=== PATIENT | female | born 1980 | race Caucasian/White ===

== ENCOUNTER 2016-11-10 12:49 | Emergency (ER) | payer SELFPAY ==
[2016-11-10 13:04] VITALS: BP 102/55
--- NOTE | 2016-11-10 13:38 | ER Document Report ---
HPI - HPI Patient complains to provider of: right foot pain Pain Level: 5 Context: patient is a 36 year old female p/w right foot pain that has been on/off for about one year. she states last spring she was treated for celullitis of her foot and since then jhas had intermittent pain on the bottom of her foot described as aching. this pain is illicited by flip flops. she states that when she wears flip flops the bottom of her foot can hurt as a 5/5. it improves with rest, elevation, ice, massage and motrin. she denies any injury, previous surgery no PCP on methadone - REPRODUCTIVE Reproductive: DENIES: : - DERM Skin Color: Normal Past Medical History - Social History Smoking Status: Current Every Day Smoker Family History: CAD, CVA, DM, Hyperlipidemia, Hypertension, Malignancy Patient has suicidal ideation: No Patient has homicidal ideation: No Neurological Medical History: Denies: Hx Seizures Renal/ Medical History: Denies: Hx Peritoneal Dialysis Psychiatric Medical History: Reports: Hx Depression Past Surgical History: Reports: Hx Appendectomy - age 6, Hx Tubal Ligation. Denies: Hx Hysterectomy, Hx Pacemaker - Immunizations Hx Diphtheria, Pertussis, Tetanus Vaccination: Yes Vertical Provider Document - CONSTITUTIONAL Agree With Documented VS: Yes Exam Limitations: No Limitations General Appearance: WD/WN, No Apparent Distress - INFECTION CONTROL TRAVEL OUTSIDE OF THE [place] IN LAST 30 DAYS: No - RESPIRATORY O2 Sat by Pulse Oximetry: 98 - CARDIOVASCULAR Pulses: Normal: Dorsalis pedis Notes: cap refill < 2 seconds in all LE digits - MUSCULOSKELETAL/EXTREMETIES Musculoskeletal/Extremeties: MAEW, FROM, Tender - insertion of the proneal tendon, No Edema Notes: 1st MTP joint without erythema, tenderness. - NEURO Level of Consciousness: Awake, Alert, Appropriate Motor/Sensory: No Motor Deficit, No Sensory Deficit - DERM Integumentary: Warm, Dry, No Rash - no erythema Course - Re-evaluation Re-evalutation: 11/10/16 13:43 Patients H&P consistent with peroneal tendonitis. d/w her to wear supportive shoes, cont RICE. f/u with [facility] - Vital Signs Vital signs: Temp Pulse Resp BP Pulse Ox 98.4 F 69 18 102/55 L 98 11/10/16 13:01 11/10/16 13:01 11/10/16 13:01 11/10/16 13:01 11/10/16 13:01 Discharge - Discharge Clinical Impression: Tendonitis Condition: Good Disposition: HOME, SELF-CARE Instructions: Tendonitis ([facility]), Ice Massage ([facility]), Use of Lhsa-Qkf-Tejyzbi Ibuprofen ([facility]) Additional Instructions: Freeze a water bottle and roll your foot over it 2-6 times a day Referrals: [facility] [NO [facility]AL MD] - Follow up as needed (to establish as a new patient)
== END 2016-11-10 14:00 | disposition home or self-care (01) ==
LOC: ER 12:49
DX: M76.71 Peroneal tendinitis, right leg (principal); M79.671 Pain in right foot; F17.200 Nicotine dependence, unspecified, uncomplicated; Z98.51 Tubal ligation status; Z79.891 Long term (current) use of opiate analgesic
CPT/HCPCS: 99283

== ENCOUNTER 2018-03-22 07:01 | Inpatient (IN) | payer SELFPAY ==
--- NOTE | 2018-03-22 07:41 | ER Document Report ---
ED General - General Mode of Arrival: Ambulatory Information source: Patient TRAVEL OUTSIDE OF THE [place] IN LAST 30 DAYS: No <LETTY PARSON - Last Filed: 03/22/18 09:25> <WILLEM MORALES - Last Filed: 03/22/18 10:17> - General Chief Complaint: Fever Stated Complaint: FEVER Time Seen by Provider: 03/22/18 07:22 Notes: Patient is a 37 year old female with depression, restless leg syndrome, and opiate dependence presents to the emergency department complaining of a fever and shortness of breath onset 3 days ago, nausea, vomiting and diaphoresis onset this morning, and diarrhea onset 1 week ago. Patient states she has been feeling unwell for the last 3 days stating she has had a fever and been having difficulty breathing. She states this morning she woke up extremely diaphoretic and vomited 1x. She states she has had diarrhea for the last week but states having intermittent diarrhea is not new for her. Patient denies cough, abdominal pain or pain with breathing. Upon arrival to the emergency department, patient's pulse ox was 89% on room air. Patient is currently taking Gabapentin, Prozac, Methadone (being seen at a methadone clinic) and follows up at [facility]. (LETTY PARSON) - Related Data Allergies/Adverse Reactions: cefazolin sodium [From Anc] Allergy (Verified 12/13/15 22:37) Hives clindamycin Allergy (Verified 12/13/15 22:37) Past Medical History - General Information source: Patient - Social History Smoking Status: Current Every Day Smoker Cigarette use (# per day): Yes - .5 PPD Chew tobacco use (# tins/day): No Frequency of alcohol use: None Family History: CAD, CVA, DM, Hyperlipidemia, Hypertension, Malignancy Psychiatric Medical History: Reports: Hx Depression Past Surgical History: Reports: Hx Appendectomy - age 6, Hx Tubal Ligation - Immunizations Hx Diphtheria, Pertussis, Tetanus Vaccination: Yes <LETTY PARSON - Last Filed: 03/22/18 09:25> Review of Systems - Review of Systems Constitutional: See HPI, Diaphoresis, Fever EENT: No symptoms reported Cardiovascular: No symptoms reported Respiratory: See HPI, Short of breath Gastrointestinal: See HPI, Diarrhea, Nausea, Vomiting Genitourinary: No symptoms reported Female Genitourinary: No symptoms reported Musculoskeletal: No symptoms reported Skin: No symptoms reported Hematologic/Lymphatic: No symptoms reported Neurological/Psychological: No symptoms reported -: Yes All other systems reviewed and negative <LETTY PARSON - Last Filed: 03/22/18 09:25> Physical Exam <LETTY PARSON - Last Filed: 03/22/18 09:25> <WILLEM MORALES - Last Filed: 03/22/18 10:17> - Vital signs Vitals: Temp Pulse Resp BP Pulse Ox 99.2 F 114 H 22 H 131/85 H 89 L 03/22/18 07:02 03/22/18 07:02 03/22/18 07:02 03/22/18 07:02 03/22/18 07:02 - Notes Notes: GENERAL: Alert, interacts well. No acute distress. HEAD: Normocephalic, atraumatic. EYES: Pupils equal, round, and reactive to light. Extraocular movements intact. ENT: Oral mucosa moist, tongue midline. NECK: Full range of motion. Supple. Trachea midline. LUNGS: Tachypneic, shallow rapid breathing, no pain with breathing, 94% on 2L of oxygen. Clear to auscultation bilaterally, no wheezes, rales, or rhonchi. No respiratory distress. HEART: Tachycardic. 1/6 systolic murmur. No gallops or rubs. ABDOMEN: Soft, non-tender. Non-distended. Bowel sounds present in all 4 quadrants. EXTREMITIES: Moves all 4 extremities spontaneously. NEUROLOGICAL: Alert and oriented x3. Normal speech. PSYCH: Normal affect, normal mood. SKIN: Warm, dry, normal turgor. No rashes or lesions noted. (LETTY PARSON) Course - Laboratory Result Diagrams: 03/22/18 07:20 03/22/18 07:20 <LETTY PARSON - Last Filed: 03/22/18 09:25> - Laboratory Result Diagrams: 03/22/18 07:20 03/22/18 07:20 - Diagnostic Test Radiology reviewed: Reports reviewed - CT scan of the chest shows diffuse airways disease with air bronchograms. Radiologist feels this is most consistent with viral or atypical pneumonia. - EKG Interpretation by Pr EKG shows normal: Sinus rhythm, [place], Intervals, QRS Complexes, ST-T Waves Rate: Normal - 88 Rhythm: NSR <WILLEM MORALES - Last Filed: 03/22/18 10:17> - Vital Signs Vital signs: Temp Pulse Resp BP Pulse Ox 99.2 F 114 H 22 H 131/85 H 89 L 03/22/18 07:02 03/22/18 07:02 03/22/18 07:02 03/22/18 07:02 03/22/18 07:02 - Laboratory Laboratory results interpreted by me: 03/22/18 03/22/18 03/22/18 07:20 07:20 07:20 WBC 10.7 H Hgb 11.5 L Hct 32.9 L RDW 15.5 H Seg Neutrophils % 86.3 H Lymphocytes % 8.6 L Absolute Neutrophils 9.2 H D-Dimer 1.07 H Potassium 3.5 L Chloride 108 H Carbon Dioxide 19 L Glucose 115 H AST 38 H Urine Protein Urine Ketones Urine Blood Urine Urobilinogen 03/22/18 08:59 WBC Hgb Hct RDW Seg Neutrophils % Lymphocytes % Absolute Neutrophils D-Dimer Potassium Chloride Carbon Dioxide Glucose AST Urine Protein 30 H Urine Ketones 20 H Urine Blood SMALL H Urine Urobilinogen 4.0 H Critical Care Note - Critical Care Note Total time excluding time spent on procedures (mins): 40 <WILLEM MORALES - Last Filed: 03/22/18 10:17> Discharge <LETTY PARSON - Last Filed: 03/22/18 09:25> - Discharge Admitting Provider: Hospitalist Unit Admitted: [facility] <WILLEM MORALES - Last Filed: 03/22/18 10:17> - Discharge Clinical Impression: Hypoxemia, Immunosuppressed status Pneumonia Qualifiers: Pneumonia type: due to unspecified organism Laterality: bilateral Lung location : lower lobe of lung Qualified Code(s): J18.1 - Lobar pneumonia, unspecified organism Fever Qualifiers: Fever type: unspecified Qualified Code(s): R50.9 - Fever, unspecified Condition: Fair Disposition: ADMITTED INPATIENT Scribe Attestation: 03/22/18 08:33 I personally performed the services described in the documentation, reviewed and edited the documentation which was dictated to the scribe in my presence, and it accurately records my words and actions. (ANDREW,WILLEM) Scribe Documentation - Scribe Written by Davian:: Davian Bhandari, 03/22/2018 07:44 acting as scribe for :: Andrew <LETTY PARSON - Last Filed: 03/22/18 09:25>
[2018-03-22 08:19] LABS: ALANINE AMINOTRANSFERASE 22 U/L (9-52); ALBUMIN 3.7 g/dL (3.5-5.0); ALKALINE PHOSPHATASE 95 U/L (38-126); ANION GAP 15 (5-19); ASPARTATE AMINO TRANSFERASE 38 U/L (14-36); BILIRUBIN,DIRECT 0.4 mg/dL (0.0-0.4); BILIRUBIN,TOTAL 0.6 mg/dL (0.2-1.3); BLOOD UREA NITROGEN 12 mg/dL (7-20); CALCIUM 9.5 mg/dL (8.4-10.2); CARBON DIOXIDE 19 mmol/L (22-30); CHLORIDE 108 mmol/L (98-107); CREATINE KINASE 68 U/L (30-135); GLUCOSE 115 mg/dL (75-110); POTASSIUM 3.5 mmol/L (3.6-5.0); SODIUM 141.7 mmol/L (137-145); TOTAL PROTEIN 7.1 g/dL (6.3-8.2)
[2018-03-22 08:22] LABS: ABSOLUTE EOSINOPHILS # (AUTO) 0.1 10^3/uL (0.0-0.6); ABSOLUTE LYMPHOCYTES (AUTO) 0.9 10^3/uL (0.5-4.7); ABSOLUTE MONOCYTES (AUTO) 0.4 10^3/uL (0.1-1.4); ABSOLUTE NEUT (AUTO) 9.2 10^3/uL (1.7-8.2); BASOPHILS % (AUTO) 0.4 % (0-2); EOSINOPHILS % (AUTO) 0.9 % (0-6); HEMATOCRIT 32.9 % (36.0-47.0); HEMOGLOBIN 11.5 g/dL (12.0-15.5); LYMPHOCYTES % (AUTO) 8.6 % (13-45); MEAN CORPUSCULAR HEMOGLOBIN 29.2 pg (27.0-33.4); MEAN CORPUSCULAR VOLUME 84 fl (80-97); MONOCYTES % (AUTO) 3.8 % (3-13); PLATELET COUNT 400 10^3/uL (150-450); RED BLOOD COUNT 3.94 10^6/uL (3.72-5.28); RED CELL DISTRIBUTION WIDTH 15.5 % (11.5-14.0); SEGMENTED NEUTROPHILS % (AUTO) 86.3 % (42-78); TOTAL CELLS COUNTED % (AUTO) 100 %; WHITE BLOOD COUNT 10.7 10^3/uL (4.0-10.5)
--- NOTE | 2018-03-22 08:31 | RADIOLOGY REPORT (SQ) ---
EXAM DESCRIPTION: CHEST SINGLE VIEW COMPLETED DATE/TIME: 03/22/2018 7:56 am REASON FOR STUDY: SOB, fever COMPARISON: None. EXAM PARAMETERS: NUMBER OF VIEWS: One view. TECHNIQUE: Single frontal radiographic view of the chest acquired. RADIATION DOSE: NA LIMITATIONS: None. FINDINGS: LUNGS AND PLEURA: Bilateral airspace disease with relative sparing of the apices. Associa fatuma air bronchograms. No large effusions. MEDIASTINUM AND HILAR STRUCTURES: No masses. Contour normal. HEART AND VASCULAR STRUCTURES: Heart normal in size. Normal vasculature. BONES: No acute findings. HARDWARE: None in the chest. OTHER: No other significant finding. IMPRESSION: Bilateral pneumonia. TECHNICAL DOCUMENTATION: JOB ID: [id number] [employer]- All Rights Reserved Reading location - IP/workstation name: [email or web address]
[2018-03-22 08:37] LABS: CREATINE KINASE MB 0.52 ng/mL (<4.55); TROPONIN I < 0.012 ng/mL
--- NOTE | 2018-03-22 09:00 | EKG REPORT ---
SEVERITY:- NORMAL ECG - SINUS RHYTHM NONSPECIFIC ST-T CHANGES : Confirmed by: Juan Epps 22-Mar-2018 08:59:08
[2018-03-22 09:13] LABS: APPEARANCE,URINE CLEAR; BILIRUBIN,URINE NEGATIVE (NEGATIVE); COLOR,URINE YELLOW; GLUCOSE, URINE NEGATIVE (NEGATIVE); KETONES,URINE 20 mg/dL (NEGATIVE); LEUKOCYTE ESTERASE,URINE NEGATIVE (NEGATIVE); NITRITE,URINE NEGATIVE (NEGATIVE); PROTEIN,URINE 30 mg/dL (NEGATIVE)
[2018-03-22] MEDS ORDERED: ONDANSETRON HCL INJ/PF 4 MG/2 ML SDV IV ONE (09:51)
--- NOTE | 2018-03-22 09:56 | RADIOLOGY REPORT (SQ) ---
EXAM DESCRIPTION: CTA CHEST COMPLETED DATE/TIME: 03/22/2018 9:38 am REASON FOR STUDY: Dyspnea, hypoxemia, elevated d-dimer COMPARISON: None. TECHNIQUE: CT scan of the chest performed using helical scanning technique with dynamic intravenous contrast injection. Images reviewed with lung, soft tissue and bone windows. Reconstructed coronal and sagittal MPR images reviewed. Additional 3 dimensional post-processing performed to develop Maximal Intensity Projection images (WI P). All images stored on PACS. All CT scanners at this facility use dose modulation, iterative reconstruction, and/or weight based d osing when appropriate to reduce radiation dose to as low as reasonably achievable (ALARA). [facility]: Dose Right [facility]: CareDose [facility]: Dose Right [facility]: Teradose 4D [facility]: Compliance Science CONTRAST TYPE AND DOSE: contrast/concentration: Isovue 350.00 mg/ml; Total Contrast Delivered: 73.0 ml; Total Saline Delivered: 80.1 ml Contrast bolus adequate for pulmonary arteries and aorta. RENAL FUNCTION: GFR > 60. RADIATION DOSE: CT Rad equipment meets quality standard of care and radiation dose reduction techniq ues were employed. CTDIvol: 14.3 - 16.5 mGy. DLP: 469 mGy-cm. . LIMITATIONS: None. FINDINGS: LUNGS AND PLEURA: Diffuse airspace disease with air bronchograms in both lungs. No eviden ce of cavitation. No Bonifacio B-lines. No effusions. Central airways are patent. AORTA AND GREAT VESSELS: No aneurysm. No dissection. HEART: No pericardial effusion. No significant coronary artery calcifications. PULMONARY ARTERIES: No emboli visualized in the main pulmonary arteries or the segmental branches. HILAR AND MEDIASTINAL STRUCTURES: No identified masses or abnormal nodes. HARDWARE: None in the chest. UPPER ABDOMEN: No significant findings. Limited exam. THYROID AND OTHER SOFT TISSUES: No masses. No adenopathy. BONES: No acute or significant finding. 3D MIPS: Confirm above findings. OTHER: No other significant finding. IMPRESSION: 1. No PE. 2. Diffuse airspace disease most consistent with viral or atypical pneumonia. Sarcoid and hypersensi tivity could also have this appearance. COMMENT: Quality ID # [id number]: Final reports with documentation of one or more dose reduction techniques (e.g., Automated exposure control, adjustment of the mA and/or kV according to patient size, use of iterative reconstruction technique) TECHNICAL DOCUMENTATION: JOB ID: [id number] [employer]- All Rights Reserved Reading location - IP/workstation name: [email or web address]
[2018-03-22] MEDS ORDERED: LEVOFLOXACIN 750 MG/D5W RTU 750 MG/150 ML RTUPB IV ONE (09:58)
[2018-03-22] MEDS ORDERED: DEXTROSE 5%-LACTATED RINGERS 1,000 ML IV ONE (10:03)
[2018-03-22] MEDS ORDERED: TEMAZEPAM 7.5 MG CAPSULE PO PRN (11:25)
[2018-03-22] MEDS ORDERED: ONDANSETRON HCL INJ/PF 4 MG/2 ML SDV IV PRN (11:25)
[2018-03-22] MEDS ORDERED: OXYCODONE-ACETAMINOPHEN 5-325 MG TABLET PO PRN (11:25)
[2018-03-22] MEDS ORDERED: MAGNESIUM HYDROXIDE SUSP 30 ML UDCUP PO PRN (11:25)
[2018-03-22] MEDS ORDERED: IPRATROPIUM/ALBUTEROL 0.5-2.5 MG/3 ML AMPUL NEB PRN (11:25)
[2018-03-22] MEDS ORDERED: MAG HYDROX/AL HYDROX/SIMETH SUSP 30 ML UDCUP PO PRN (11:25)
[2018-03-22] MEDS ORDERED: ENOXAPARIN SODIUM INJ 40 MG/0.4 ML DISP.SYRIN SUBCUT ONE (13:00)
--- NOTE | 2018-03-22 19:04 | PDOC H&P ---
History of Present Illness Admission Date/PCP: 03/22/18 10:29 Patient complains of: Patient admitted with difficulty breathing and shortness of breath fever been ongoing for a few days. History of Present Illness: GÉNESIS DUMONT is a 37 year old female She woke up this morning with diaphoresis as well as vomiting. She also complained of intermittent diarrhea but denies abdominal pain nausea and vomiting. She was found to be in acute respiratory distress. CT scan revealed diffuse airspace disease consistent with viral or atypical pneumonitis. Sarcoid and hypersensitivity reactions could also have this appearance. Patient has a history of depression, restless leg syndrome as well as opiate dependency. Patient is currently on methadone as well as Prozac and gabapentin Past Medical History Neurological Medical History: Denies: Seizures Psychiatric Medical History: Reports: Depression Past Surgical History Past Surgical History: Reports: Appendectomy - age 6, Tubal Ligation Denies: Hysterectomy, Pacemaker Social History Information Source: Patient Smoking Status: Current Every Day Smoker Cigarettes Packs Per Day: 0.5 Number of Years Smokin Frequency of Alcohol Use: None Hx Recreational Drug Use: Yes Drugs: None Hx Prescription Drug Abuse: No - Advance Directive Resuscitation Status: Full Code Family History Family History: CAD, CVA, DM, Hyperlipidemia, Hypertension, Malignancy Parental Family History Reviewed: Yes Children Family History Reviewed: No Sibling(s) Family History Reviewed.: No Medication/Allergy Home Medications: Fluoxetine HCl [Prozac 20 mg Capsule] 60 mg PO DAILY 03/22/18 Gabapentin [Neurontin] 800 mg PO Q6 03/22/18 Methadone HCl [Dolophine 10 Mg Tablet] 120 mg PO DAILY 03/22/18 Allergies/Adverse Reactions: cefazolin sodium [From Ancef] Allergy (Verified 12/13/15 22:37) Hives clindamycin Allergy (Verified 12/13/15 22:37) Review of Systems All systems: reviewed and no additional remarkable complaints except as stated Physical Exam Vital Signs: Temp Pulse Resp BP Pulse Ox 97.7 F 72 20 100/55 L 91 L 03/22/18 13:36 03/22/18 13:32 03/22/18 13:36 03/22/18 13:36 03/22/18 13:36 Intake & Output 03/21/18 03/22/18 03/23/18 06:59 06:59 06:59 Intake Total 1270 Output Total 0 Balance 1270 General appearance: PRESENT: no acute distress, well-developed, well-nourished Head exam: PRESENT: atraumatic, normocephalic Eye exam: PRESENT: conjunctiva pink, EOMI, PERRLA. ABSENT: scleral icterus Ear exam: PRESENT: normal external ear exam Mouth exam: PRESENT: moist, tongue midline Neck exam: ABSENT: carotid bruit, JVD, lymphadenopathy, thyromegaly Respiratory exam: PRESENT: decreased breath sounds, rhonchi, unlabored. ABSENT : rales, wheezes Cardiovascular exam: PRESENT: RRR. ABSENT: diastolic murmur, rubs, systolic murmur Pulses: PRESENT: normal dorsalis pedis pul Vascular exam: PRESENT: normal capillary refill GI/Abdominal exam: PRESENT: normal bowel sounds, soft. ABSENT: distended, guarding, mass, organolmegaly, rebound, tenderness Rectal exam: PRESENT: deferred Extremities exam: PRESENT: full ROM. ABSENT: calf tenderness, clubbing, pedal edema Neurological exam: PRESENT: alert, awake, oriented to person, oriented to place , oriented to time, oriented to situation, CN II-XII grossly intact. ABSENT: motor sensory deficit Psychiatric exam: PRESENT: appropriate affect, normal mood. ABSENT: homicidal ideation, suicidal ideation Skin exam: PRESENT: dry, intact, warm. ABSENT: cyanosis, rash Results Laboratory Results: 03/22/18 07:20 03/22/18 07:20 MCV 84 fl (80-97) 03/22/18 07:20 MCH 29.2 pg (27.0-33.4) 03/22/18 07:20 MCHC 35.0 g/dL (32.0-36.0) 03/22/18 07:20 RDW 15.5 % (11.5-14.0) H 03/22/18 07:20 Seg Neutrophils % 86.3 % (42-78) H 03/22/18 07:20 Lymphocytes % 8.6 % (13-45) L 03/22/18 07:20 Monocytes % 3.8 % (3-13) 03/22/18 07:20 Eosinophils % 0.9 % (0-6) 03/22/18 07:20 Basophils % 0.4 % (0-2) 03/22/18 07:20 Absolute Neutrophils 9.2 10^3/uL (1.7-8.2) H 03/22/18 07:20 Absolute Lymphocytes 0.9 10^3/uL (0.5-4.7) 03/22/18 07:20 Absolute Monocytes 0.4 10^3/uL (0.1-1.4) 03/22/18 07:20 Absolute Eosinophils 0.1 10^3/uL (0.0-0.6) 03/22/18 07:20 Absolute Basophils 0.0 10^3/uL (0.0-0.2) 03/22/18 07:20 Chloride 108 mmol/L (98-107) H 03/22/18 07:20 Carbon Dioxide 19 mmol/L (22-30) L 03/22/18 07:20 Anion Gap 15 (5-19) 03/22/18 07:20 Est GFR ( Amer) > 60 (>60) 03/22/18 07:20 Est GFR (Non-Af Amer) > 60 (>60) 03/22/18 07:20 Glucose 115 mg/dL (75-110) H 03/22/18 07:20 Lactic Acid 1.1 mmol/L (0.7-2.1) 03/22/18 10:03 Calcium 9.5 mg/dL (8.4-10.2) 03/22/18 07:20 Total Bilirubin 0.6 mg/dL (0.2-1.3) 03/22/18 07:20 AST 38 U/L (14-36) H 03/22/18 07:20 ALT 22 U/L (9-52) 03/22/18 07:20 Alkaline Phosphatase 95 U/L (38-126) 03/22/18 07:20 Total Protein 7.1 g/dL (6.3-8.2) 03/22/18 07:20 Albumin 3.7 g/dL (3.5-5.0) 03/22/18 07:20 Serum HCG, Qual NEGATIVE (NEGATIVE) 03/22/18 07:20 Urine Color YELLOW 03/22/18 08:59 Urine Appearance CLEAR 03/22/18 08:59 Urine pH 6.0 (5.0-9.0) 03/22/18 08:59 Ur Specific [place] 1.010 03/22/18 08:59 Urine Protein 30 mg/dL (NEGATIVE) H 03/22/18 08:59 Urine Glucose (UA) NEGATIVE mg/dL (NEGATIVE) 03/22/18 08:59 Urine Ketones 20 mg/dL (NEGATIVE) H 03/22/18 08:59 Urine Blood SMALL (NEGATIVE) H 03/22/18 08:59 Urine Nitrite NEGATIVE (NEGATIVE) 03/22/18 08:59 Ur Leukocyte Esterase NEGATIVE (NEGATIVE) 03/22/18 08:59 Urine WBC (Auto) 0 /HPF 03/22/18 08:59 Urine RBC (Auto) 1 /HPF 03/22/18 08:59 03/22/18 03/22/18 03/22/18 07:20 07:20 07:20 Creatine Kinase 68 CK-MB (CK-2) 0.52 Troponin I < 0.012 NT-Pro-B Natriuret Pep 816 H Impressions: Chest X-Ray 03/22/18 07:35 IMPRESSION: Bilateral pneumonia. Chest/Abdomen CTA 03/22/18 08:32 IMPRESSION: 1. No PE. 2. Diffuse airspace disease most consistent with viral or atypical pneumonia. Sarcoid and hypersensitivity could also have this appearance. Assessment & Plan - Diagnosis (1) Pneumonia Qualifiers: Pneumonia type: due to unspecified organism Laterality: bilateral Lung location: lower lobe of lung Qualified Code(s): J18.1 - Lobar pneumonia, unspecified organism Is this a current diagnosis for this admission?: Yes Plan: Likely atypical as per radiology readings. Will obtain Legionella and mycoplasma titers. HIV test will also be obtained. Will place patient on Levaquin in the interim. It is quite possible that this is a viral pneumonia. Further consultation with infectious disease will be obtained if needed (2) Acute respiratory failure with hypoxemia Is this a current diagnosis for this admission?: Yes Plan: We will continue oxygen support. At this time I see no indication for steroids and so will defer for now (3) Chronic pain syndrome Is this a current diagnosis for this admission?: Yes Plan: Continuous opioid use. She is on methadone as outpatient. Will restart her on her home meds with the adjustments as needed - Time Time Spent: 50 to 70 Minutes Medications reviewed and adjusted accordingly: Yes Anticipated discharge: Home Within: within 72 hours - Inpatient Certification Based on my medical assessment, after consideration of the patient's comorbidities, presenting symptoms, or acuity I expect that the services needed warrant INPATIENT care.: Yes Medical Necessity: Need For IV Fluids, Need for Nebulizer Therapy and Monitoring of Response, Need for IV Antibiotics
[2018-03-22] MEDS: ACETAMINOPHEN 325 MG TABLET PO PRN (22:53)
[2018-03-22] MEDS: GUAIFENESIN 600 MG TABLET.SA PO SCH (22:53)
[2018-03-22] MEDS: GABAPENTIN 400 MG CAPSULE PO SCH (23:00)
[2018-03-23] MEDS: GABAPENTIN 400 MG CAPSULE PO SCH ×4 (05:42→23:27)
[2018-03-23] MEDS: ACETAMINOPHEN 325 MG TABLET PO PRN (06:59)
[2018-03-23 07:32] LABS: ABSOLUTE EOSINOPHILS # (AUTO) 0.4 10^3/uL (0.0-0.6); ABSOLUTE LYMPHOCYTES (AUTO) 1.3 10^3/uL (0.5-4.7); ABSOLUTE MONOCYTES (AUTO) 0.6 10^3/uL (0.1-1.4); ABSOLUTE NEUT (AUTO) 5.9 10^3/uL (1.7-8.2); BASOPHILS % (AUTO) 0.5 % (0-2); EOSINOPHILS % (AUTO) 4.6 % (0-6); HEMATOCRIT 28.1 % (36.0-47.0); HEMOGLOBIN 9.8 g/dL (12.0-15.5); LYMPHOCYTES % (AUTO) 16.1 % (13-45); MEAN CORPUSCULAR HEMOGLOBIN 28.8 pg (27.0-33.4); MEAN CORPUSCULAR HGB CONC 34.9 g/dL (32.0-36.0); MEAN CORPUSCULAR VOLUME 83 fl (80-97); MONOCYTES % (AUTO) 6.9 % (3-13); PLATELET COUNT 328 10^3/uL (150-450); RED CELL DISTRIBUTION WIDTH 15.3 % (11.5-14.0); SEGMENTED NEUTROPHILS % (AUTO) 71.9 % (42-78); TOTAL CELLS COUNTED % (AUTO) 100 %; WHITE BLOOD COUNT 8.2 10^3/uL (4.0-10.5)
[2018-03-23 07:52] LABS: ANION GAP 12 (5-19); BLOOD UREA NITROGEN 11 mg/dL (7-20); CALCIUM 8.8 mg/dL (8.4-10.2); CARBON DIOXIDE 22 mmol/L (22-30); CHLORIDE 109 mmol/L (98-107); GLUCOSE 99 mg/dL (75-110); POTASSIUM 3.2 mmol/L (3.6-5.0); SODIUM 142.7 mmol/L (137-145)
[2018-03-23] MEDS: GUAIFENESIN 600 MG TABLET.SA PO SCH ×2 (09:08→21:52)
[2018-03-23] MEDS: METHADONE HCL 10 MG TABLET PO SCH (09:09)
[2018-03-23] MEDS: FLUOXETINE HCL 20 MG CAPSULE PO SCH (09:09)
[2018-03-23] MEDS: ENOXAPARIN SODIUM INJ 40 MG/0.4 ML DISP.SYRIN SUBCUT SCH (09:10)
[2018-03-23] MEDS: LEVOFLOXACIN 750 MG/D5W RTU 750 MG/150 ML RTUPB IV SCH (09:11)
[2018-03-23] MEDS: DOCUSATE SODIUM 100 MG CAPSULE PO SCH (09:12)
[2018-03-23] MEDS ORDERED: POTASSIUM CHLORIDE 10 MEQ CAPSULE.ER PO ONE (12:30)
[2018-03-23] MEDS: KETOROLAC TROMETHAMINE INJ/PF 30 MG/1 ML SDV IV SCH ×3 (12:47→23:27)
--- NOTE | 2018-03-23 15:11 | PROGRESS NOTE E ---
Progress Note NAME: GÉNESIS DUMONT : 1980 AGE: 37Y DATE: 03/23/2018 ROOM: 333 SUBJECTIVE: The patient is currently sitting up in bed. She states she feels much better today in comparison to yesterday when she came in. The patient denies any nausea, vomiting, diarrhea. No dizziness or chest pain. The patient does admit to some shortness of breath with activity and pleuritic style discomfort. However, the patient does not have any conversational dyspnea and does not appear to be in any acute distress. REVIEW OF SYSTEMS: The rest of the review of systems is negative. MEDICATIONS: Reviewed. OBJECTIVE: GENERAL: The patient is a 37-year-old female who is awake, alert, and oriented to person, place, time, and situation. She is verbal and conversational. Does not appear to be in any acute distress. VITAL SIGNS: Temperature 98.2, pulse 73, respirations 18, blood pressure 100/47, oxygen saturation is 98% on 2 liters nasal cannula. SKIN: Warm and dry. No rash, not diaphoretic. HEENT: Pupils equal, round, and reactive to light and accommodation. Oral mucosa pink. CVS: Heart is regular. No rub. CHEST: Diminished, symmetrical, unlabored. ABDOMEN: Soft, nontender, nondistended. BACK: No CVA tenderness. EXTREMITIES: No clubbing, cyanosis, or edema. PSYCHIATRIC: Appropriate affect, positive mood. DIAGNOSTICS: Lab values are as follows. Hematology obtained on 03/23/2018 demonstrates white count 8, hematocrit 28.1, platelet count 328,000. Chemistry obtained on 03/23/2018: Sodium 142, potassium 3.2, chloride 109, carbon dioxide 22, BUN 11, creatinine 0.55, glucose 99, calcium 8.8. ASSESSMENT AND PLAN: 1. ATYPICAL PNEUMONIA. Will continue current antibiotic coverage. The patient still has pending mycoplasma as well as Legionella. HIV was unremarkable. I will continue current coverage, as the patient overall feels much improved. Of course, there may be underlying bowel process. Will continue to monitor the patient. Clinically appears improved. 2. ACUTE HYPOXEMIC RESPIRATORY FAILURE. Will continue to supplement O2. The patient is not wheezing. Steroids have been deferred at this time. She has made improvement. Will follow. 3. Opiate dependency. Continuous. Will continue the patient's home medications. She does take methadone on an outpatient basis. I have started her home medications and adjustments have been made accordingly. 4. TOBACCO DEPENDENCY. Spent 3 minutes discussing smoking cessation education. The patient declines any pharmacological intervention at this time. Will add as needed nicotine patch. DISPOSITION: The patient is a full code. Pending the patient's symptomatology and diagnostic findings, will reevaluate in the a.m. for discharge. Will downgrade the patient to a medical bed. Time spent on this followup including assessment, plan, physical examination, patient education, review of records, and family meeting 20 minutes. DICTATING PHYSICIAN: VARSHA CONTRERSA NP [id number] PHY#: [id number] ID: [id number] JOB#: [id number] ACCT: [id number] cc: > MTDD
[2018-03-24] MEDS: GABAPENTIN 400 MG CAPSULE PO SCH (05:22)
[2018-03-24] MEDS: KETOROLAC TROMETHAMINE INJ/PF 30 MG/1 ML SDV IV SCH (05:23)
[2018-03-24 07:52] LABS: ANION GAP 12 (5-19); BLOOD UREA NITROGEN 16 mg/dL (7-20); CALCIUM 8.9 mg/dL (8.4-10.2); CARBON DIOXIDE 23 mmol/L (22-30); CHLORIDE 108 mmol/L (98-107); GLUCOSE 90 mg/dL (75-110); POTASSIUM 3.5 mmol/L (3.6-5.0); SODIUM 143.3 mmol/L (137-145)
[2018-03-24] MEDS: METHADONE HCL 10 MG TABLET PO SCH (09:11)
[2018-03-24] MEDS: FLUOXETINE HCL 20 MG CAPSULE PO SCH (09:12)
[2018-03-24] MEDS: GUAIFENESIN 600 MG TABLET.SA PO SCH (09:12)
[2018-03-24] MEDS: ENOXAPARIN SODIUM INJ 40 MG/0.4 ML DISP.SYRIN SUBCUT SCH (09:13)
[2018-03-24] MEDS: LEVOFLOXACIN 750 MG/D5W RTU 750 MG/150 ML RTUPB IV SCH (09:13)
[2018-03-24] MEDS: DOCUSATE SODIUM 100 MG CAPSULE PO SCH (09:13)
[2018-03-24 11:35] VITALS: BP 115/62
--- NOTE | 2018-03-24 16:20 | PDOC DISCHARGE SUMMARY ---
General - Admit/Disc Date/PCP Admission Date/Primary Care Provider: 03/22/18 10:29 [facility] Discharge Date: 03/24/18 - Discharge Diagnosis (1) Multifocal pneumonia Is this a current diagnosis for this admission?: Yes Summary: review CTA findings. (2) Acute respiratory failure with hypoxemia Is this a current diagnosis for this admission?: Yes (3) Chronic pain syndrome Is this a current diagnosis for this admission?: Yes Summary: Methadone (4) Tobacco dependence Is this a current diagnosis for this admission?: Yes - Additional Information Resuscitation Status: Full Code Discharge Diet: As Tolerated, Regular Discharge Activity: Activity As Tolerated Prescriptions: Doxycycline Hyclate [Vibramycin] 100 mg PO BID #14 capsule Home Medications: Fluoxetine HCl [Prozac 20 mg Capsule] 60 mg PO DAILY 03/22/18 Gabapentin [Neurontin] 800 mg PO Q6 03/22/18 Methadone HCl [Dolophine 10 mg Tablet] 120 mg PO DAILY 03/22/18 Doxycycline Hyclate [Vibramycin] 100 mg PO BID #14 capsule 03/24/18 History of Present Illness Patient complains of: Shortness of breath History of Present Illness: GÉNESIS DUMONT is a 37 year old female with a past medical history of methadone and tobacco dependency. The patient presented to the emergency department with a chief complaint of shortness of breath. She woke up the morning of presentation with diaphoresis. The patient also complained of intermittent diarrhea but denies abdominal pain nausea and vomiting. She was found to be in acute respiratory distress. CT scan revealed diffuse airspace disease consistent with viral or atypical pneumonitis. Sarcoid and hypersensitivity reactions could also have this appearance. Patient has a history of depression, restless leg syndrome. The patient was referred to the hospitalist service for admission and management. Hospital Course Hospital Course: The patient was admitted to [facility]. The patient was placed on scheduled nebs, IV antibiotic coverage (Levaquin), expectorants, supplemental O2, senna spirometry and flutter valve. Sputum studies including microbacterium have been obtained and are pending at the time of discharge. Patient had tremendous improvement overnight and is no longer a requiring O2. Patient was able to shower without dyspnea. The patient was transitioned back to room air. As noted to be hypokalemic and therefore this was supplemented. The patient is uninsured. Did discuss antibiotic options with the patient and we will give the patient a course of doxycycline. [facility] and to follow- up her sputum studies. Physical Exam Vital Signs: Temp Pulse Resp BP Pulse Ox 97.8 F 50 L 18 115/62 94 03/24/18 11:34 03/24/18 11:34 03/24/18 11:34 03/24/18 11:34 03/24/18 11:34 Intake & Output 03/22/18 03/23/18 03/24/18 23:59 23:59 23:59 Intake Total 1270 931 872 Output Total 0 Balance 1270 931 872 Weight 76.1 kg 75.6 kg General appearance: PRESENT: no acute distress, well-developed, well-nourished Head exam: PRESENT: atraumatic, normocephalic Eye exam: PRESENT: conjunctiva pink, EOMI, PERRLA. ABSENT: scleral icterus Ear exam: PRESENT: normal external ear exam Mouth exam: PRESENT: moist, tongue midline Neck exam: ABSENT: carotid bruit, JVD, lymphadenopathy, thyromegaly Respiratory exam: PRESENT: decreased breath sounds, prolonged expiratory phas, symmetrical, unlabored. ABSENT: rales, rhonchi, tachypnea, wheezes Cardiovascular exam: PRESENT: RRR. ABSENT: diastolic murmur, rubs, systolic murmur Pulses: PRESENT: normal dorsalis pedis pul Vascular exam: PRESENT: normal capillary refill GI/Abdominal exam: PRESENT: normal bowel sounds, soft. ABSENT: distended, guarding, mass, organolmegaly, rebound, tenderness Rectal exam: PRESENT: deferred Extremities exam: PRESENT: full ROM. ABSENT: calf tenderness, clubbing, pedal edema Neurological exam: PRESENT: alert, awake, oriented to person, oriented to place , oriented to time, oriented to situation, CN II-XII grossly intact. ABSENT: motor sensory deficit Psychiatric exam: PRESENT: appropriate affect, normal mood. ABSENT: homicidal ideation, suicidal ideation Skin exam: PRESENT: dry, intact, warm. ABSENT: cyanosis, rash Results Laboratory Results: Labs- Last Values WBC 8.2 10^3/uL (4.0-10.5) 03/23/18 07:03 RBC 3.40 10^6/uL (3.72-5.28) L 03/23/18 07:03 Hgb 9.8 g/dL (12.0-15.5) L 03/23/18 07:03 Hct 28.1 % (36.0-47.0) L 03/23/18 07:03 MCV 83 fl (80-97) 03/23/18 07:03 MCH 28.8 pg (27.0-33.4) 03/23/18 07:03 MCHC 34.9 g/dL (32.0-36.0) 03/23/18 07:03 RDW 15.3 % (11.5-14.0) H 03/23/18 07:03 Plt Count 328 10^3/uL (150-450) 03/23/18 07:03 Seg Neutrophils % 71.9 % (42-78) 03/23/18 07:03 Lymphocytes % 16.1 % (13-45) 03/23/18 07:03 Monocytes % 6.9 % (3-13) 03/23/18 07:03 Eosinophils % 4.6 % (0-6) 03/23/18 07:03 Basophils % 0.5 % (0-2) 03/23/18 07:03 Absolute Neutrophils 5.9 10^3/uL (1.7-8.2) 03/23/18 07:03 Absolute Lymphocytes 1.3 10^3/uL (0.5-4.7) 03/23/18 07:03 Absolute Monocytes 0.6 10^3/uL (0.1-1.4) 03/23/18 07:03 Absolute Eosinophils 0.4 10^3/uL (0.0-0.6) 03/23/18 07:03 Absolute Basophils 0.0 10^3/uL (0.0-0.2) 03/23/18 07:03 D-Dimer 1.07 ug/mL (0.00-0.50) H 03/22/18 07:20 Sodium 143.3 mmol/L (137-145) 03/24/18 06:36 Potassium 3.5 mmol/L (3.6-5.0) L 03/24/18 06:36 Chloride 108 mmol/L (98-107) H 03/24/18 06:36 Carbon Dioxide 23 mmol/L (22-30) 03/24/18 06:36 Anion Gap 12 (5-19) 03/24/18 06:36 BUN 16 mg/dL (7-20) 03/24/18 06:36 Creatinine 0.58 mg/dL (0.52-1.25) 03/24/18 06:36 Est GFR ( Amer) > 60 (>60) 03/24/18 06:36 Est GFR (Non-Af Amer) > 60 (>60) 03/24/18 06:36 Glucose 90 mg/dL (75-110) 03/24/18 06:36 POC Glucose 107 mg/dL (70-110) 03/22/18 07:19 Lactic Acid 1.1 mmol/L (0.7-2.1) 03/22/18 10:03 Calcium 8.9 mg/dL (8.4-10.2) 03/24/18 06:36 Magnesium 2.1 mg/dL (1.6-2.3) 03/24/18 06:36 Total Bilirubin 0.6 mg/dL (0.2-1.3) 03/22/18 07:20 Direct Bilirubin 0.4 mg/dL (0.0-0.4) 03/22/18 07:20 Neonat Total Bilirubin Not Reportable 03/22/18 07:20 Neonat Direct Bilirubin Not Reportable 03/22/18 07:20 Neonat Indirect Bili Not Reportable 03/22/18 07:20 AST 38 U/L (14-36) H 03/22/18 07:20 ALT 22 U/L (9-52) 03/22/18 07:20 Alkaline Phosphatase 95 U/L (38-126) 03/22/18 07:20 Creatine Kinase 68 U/L (30-135) 03/22/18 07:20 CK-MB (CK-2) 0.52 ng/mL (<4.55) 03/22/18 07:20 Troponin I < 0.012 ng/mL 03/22/18 07:20 NT-Pro-B Natriuret Pep 816 pg/mL (<125) H 03/22/18 07:20 Total Protein 7.1 g/dL (6.3-8.2) 03/22/18 07:20 Albumin 3.7 g/dL (3.5-5.0) 03/22/18 07:20 Serum HCG, Qual NEGATIVE (NEGATIVE) 03/22/18 07:20 Urine Color YELLOW 03/22/18 08:59 Urine Appearance CLEAR 03/22/18 08:59 Urine pH 6.0 (5.0-9.0) 03/22/18 08:59 Ur Specific [place] 1.010 03/22/18 08:59 Urine Protein 30 mg/dL (NEGATIVE) H 03/22/18 08:59 Urine Glucose (UA) NEGATIVE mg/dL (NEGATIVE) 03/22/18 08:59 Urine Ketones 20 mg/dL (NEGATIVE) H 03/22/18 08:59 Urine Blood SMALL (NEGATIVE) H 03/22/18 08:59 Urine Nitrite NEGATIVE (NEGATIVE) 03/22/18 08:59 Urine Bilirubin NEGATIVE (NEGATIVE) 03/22/18 08:59 Urine Urobilinogen 4.0 mg/dL (<2.0) H 03/22/18 08:59 Ur Leukocyte Esterase NEGATIVE (NEGATIVE) 03/22/18 08:59 Urine WBC (Auto) 0 /HPF 03/22/18 08:59 Urine RBC (Auto) 1 /HPF 03/22/18 08:59 Urine Bacteria (Auto) 2+ /HPF 03/22/18 08:59 Squamous Epi Cells Auto 2 /HPF 03/22/18 08:59 Urine Mucus (Auto) FEW /LPF 03/22/18 08:59 Urine Ascorbic Acid NEGATIVE (NEGATIVE) 03/22/18 08:59 HIV 1&2 Antibody NEGATIVE (NEGATIVE) 03/23/18 07:03 Impressions: Chest X-Ray 03/22/18 07:35 IMPRESSION: Bilateral pneumonia. Chest/Abdomen CTA 03/22/18 08:32 IMPRESSION: 1. No PE. 2. Diffuse airspace disease most consistent with viral or atypical pneumonia. Sarcoid and hypersensitivity could also have this appearance. Qualifiers - * PATIENT BEING DISCHARGED WITH ANY OF THE FOLLOWING DIAGNOSIS: No Plan Discharge Plan: [facility] and to establish care. Will need to follow-up send out labs. Time Spent: Less than 30 Minutes
[2018-03-26 10:11] LABS: MYCOPLASMA PNEUMONIAE IGG AB 179 U/mL (0-99); MYCOPLASMA PNEUMONIAE IGM AB <770 U/mL (0-769)
== END 2018-03-24 12:30 | disposition home or self-care (01) | DRG 193 ==
LOC: ER 07:01 → EH 10:29 → 3S 13:17
PROVIDERS: ADMIT Internal Medicine; ATTEND Internal Medicine
DX: J18.9 Pneumonia, unspecified organism (principal); J96.01 Acute respiratory failure with hypoxia; F11.20 Opioid dependence, uncomplicated; E87.6 Hypokalemia; R50.9 Fever, unspecified; G89.4 Chronic pain syndrome; G25.81 Restless legs syndrome; F17.210 Nicotine dependence, cigarettes, uncomplicated
CPT/HCPCS: 36415; 71045; 71275; 80048; 80053; 81001; 82550; 82553; 82962; 83605; 83735; 83880; 84484; 84703; 85025; 85379; 86701; 86738; 87040; 87070; 87205; 93005; 93010; 94799; 96374; 99291; J1650; J1956; J2405

== ENCOUNTER 2019-03-29 12:44 | Emergency (ER) | payer SELFPAY ==
[2019-03-29 12:49] VITALS: BP 109/66
--- NOTE | 2019-03-29 13:03 | ER Document Report ---
HPI - HPI Time Seen by Provider: 03/29/19 12:52 Pain Level: 2 Notes: Patient is a 38-year-old female presenting to the emergency department with chief complaint of possible abscess to her left buttock. Patient reports area of tenderness for the last 2 days, states that she did have some drainage from the area yesterday. She denies any history of abscesses. States that she thinks she may have been bitten by something as leading up to the tenderness she did have a lot of itchiness in the area. - REPRODUCTIVE Reproductive: DENIES: : Past Medical History - General Information source: Patient - Social History Smoking Status: Never Smoker Frequency of alcohol use: None Drug Abuse: None Family History: CAD, CVA, DM, Hyperlipidemia, Hypertension, Malignancy Neurological Medical History: Denies: Hx Seizures Renal/ Medical History: Denies: Hx Peritoneal Dialysis Psychiatric Medical History: Reports: Hx Depression Past Surgical History: Reports: Hx Appendectomy - age 6, Hx Tubal Ligation. Denies: Hx Hysterectomy, Hx Pacemaker - Immunizations Hx Diphtheria, Pertussis, Tetanus Vaccination: Yes Vertical Provider Document - CONSTITUTIONAL Notes: PHYSICAL EXAMINATION: GENERAL: Well-appearing, well-nourished and in no acute distress. HEAD: Atraumatic, normocephalic. EYES: Pupils equal round extraocular movements intact, conjunctiva are normal. ENT: Nares patent NECK: Normal range of motion LUNGS: No respiratory distress Musculoskeletal: Normal range of motion NEUROLOGICAL: Normal speech, normal gait. PSYCH: Normal mood, normal affect. SKIN: Small area of erythema with central clearing noted to left upper buttock, no induration or fluctuance noted, no heat noted. - INFECTION CONTROL TRAVEL OUTSIDE OF THE [place] IN LAST 30 DAYS: No Course - Re-evaluation Re-evalutation: Patient has small area of cellulitis to her left buttock measuring approximately 1 cm x 1 cm. This was marked with a surgical marker. There is no induration or fluctuance noted, no indication for I&D. Patient will be started on antibiotics, encouraged close follow-up if worsening. Patient verbalized understanding and agreement with this plan. The patient's emergency department workup and current diagnosis were explained to the patient and or family. Follow-up instructions were provided. Medications if prescribed were discussed. Instructions for when to return to the emergency department including specific worrisome symptoms were discussed with the patient and/or family. - Vital Signs Vital signs: Temp Pulse Resp BP Pulse Ox 98.4 F 74 16 109/66 98 03/29/19 12:48 03/29/19 12:48 03/29/19 12:48 03/29/19 12:48 03/29/19 12:48 Discharge - Discharge Clinical Impression: Cellulitis Qualifiers: Site of cellulitis: buttock Qualified Code(s): L03.317 - Cellulitis of buttock Condition: Stable Disposition: HOME, SELF-CARE Additional Instructions: Cellulitis You have an infection of your skin and underlying soft tissues called cellulitis. This is due to bacteria, which can enter through any break in the skin, or even through an irritated hair follicle. Untreated, cellulitis will usually worsen. Antibiotics are required. Usually, warm packs or warm soaks, and elevation of the infected area are recommended. You should start getting better within 24 to 36 hours. Most infections respond quickly to the right medication. Follow-up care is important, however, to check for abscess (boil) formation, unsuspected foreign body, or resistant infection. If you develop fever, chills, or if the area of infection is becoming rapidly more swollen or painful, call the doctor at once. The area of concern was marked with a surgical marker. If the redness extends outside the markings by 2 cm or greater please return to the emergency department for recheck. Please also return if you develop worsening symptoms to include development of high fever, chills, worsening pain. At this time there is no area that needs to be drained. I believe all of the drainage came out when it drained at home. Take ibuprofen 600 mg every 6 hours for pain and inflammation. Take the antibiotics as prescribed, finish the entire course even if your symptoms improve. Prescriptions: Sulfamethoxazole/Trimethoprim [Bactrim Ds Tablet] 1 tab PO BID #14 tablet
== END 2019-03-29 13:19 | disposition home or self-care (01) ==
LOC: ER 12:44
DX: L03.317 Cellulitis of buttock (principal)
CPT/HCPCS: 99283

== ENCOUNTER 2019-06-16 16:45 | Emergency (ER) | payer SELFPAY ==
[2019-06-16 16:49] VITALS: BP 117/59
--- NOTE | 2019-06-16 17:06 | ER Document Report ---
HPI - HPI Patient complains to provider of: flank pain Time Seen by Provider: 06/16/19 16:58 Onset: Other - sunday Onset/Duration: Persistent Quality of pain: Achy Pain Level: 3 Context: This 38-year-old female presents emergency department with complaints of bilateral flank pain since Sunday. Also complains of urinary frequency. Denies pain with void. Denies fever vomiting diarrhea. Denies increased thirst. Denies cough. Denies abdominal pain. Associated Symptoms: None Exacerbated by: Denies Relieved by: Denies Similar symptoms previously: No Recently seen / treated by doctor: No - URINARY Urinary: REPORTS: Dysuria, Frequency - REPRODUCTIVE Reproductive: DENIES: : Past Medical History - General Information source: Patient Last Menstrual Period: btl - Social History Smoking Status: Current Every Day Smoker Chew tobacco use (# tins/day): No Frequency of alcohol use: None Drug Abuse: None Lives with: Family Family History: CAD, CVA, DM, Hyperlipidemia, Hypertension, Malignancy Patient has suicidal ideation: No Patient has homicidal ideation: No Neurological Medical History: Denies: Hx Seizures Renal/ Medical History: Denies: Hx Peritoneal Dialysis Psychiatric Medical History: Reports: Hx Depression Past Surgical History: Reports: Hx Appendectomy - age 6, Hx Tubal Ligation. Denies: Hx Hysterectomy, Hx Pacemaker - Immunizations Hx Diphtheria, Pertussis, Tetanus Vaccination: Yes Vertical Provider Document - CONSTITUTIONAL Agree With Documented VS: Yes Exam Limitations: No Limitations General Appearance: WD/WN, No Apparent Distress - INFECTION CONTROL TRAVEL OUTSIDE OF THE [place] IN LAST 30 DAYS: No - HEENT HEENT: Atraumatic, Normocephalic - NECK Neck: Normal Inspection, Supple - RESPIRATORY Respiratory: Breath Sounds Normal, No Respiratory Distress. negative: Rhonchi, Wheezing - CARDIOVASCULAR Cardiovascular: Regular Rate - GI/ABDOMEN Gastrointestinal: Abdomen Soft, Abdomen Non-Tender - BACK Back: Normal Inspection, CVA Tenderness-Right, CVA Tenderness-Left - MUSCULOSKELETAL/EXTREMETIES Musculoskeletal/Extremeties: AJAY LOUISE - NEURO Level of Consciousness: Awake, Alert, Appropriate Motor/Sensory: No Motor Deficit - DERM Integumentary: Warm, Dry Course - Re-evaluation Re-evalutation: 06/16/19 17:04 This 38-year-old female presents emergency department with urinary frequency and bilateral flank pain. Patient denies increased thirst. She denies fever vomiting diarrhea. Denies abdominal pain no complaints of vaginal discharge. Instructed on plan of care obtain UA. 06/16/19 18:18 Urine Color YELLOW 06/16/19 17:10 Urine Appearance CLEAR 06/16/19 17:10 Urine pH 6.0 (5.0-9.0) 06/16/19 17:10 Ur Specific [place] 1.015 06/16/19 17:10 Urine Protein NEGATIVE mg/dL (NEGATIVE) 06/16/19 17:10 Urine Glucose (UA) >=500 mg/dL (NEGATIVE) H 06/16/19 17:10 Urine Ketones NEGATIVE mg/dL (NEGATIVE) 06/16/19 17:10 Urine Blood SMALL (NEGATIVE) H 06/16/19 17:10 Urine RBC (Auto) 1 /HPF 06/16/19 17:10 Large amount of urine glucose noted. Trace of leukocytes. Patient Accu-Chek done 147. Patient reports she ate A [employer] BAR before voiding. Patient reports she does have family members with diabetes. She was instructed on the importance of follow-up with her primary care provider for recheck A1c. She was also instructed Macrobid. She was instructed to return here for worsening flank pain fevers concerns. She verbalized understanding to all instructions. Dictation of this chart was performed using voice recognition software; therefore, there may be some unintended grammatical errors. - Vital Signs Vital signs: Temp Pulse Resp BP Pulse Ox 98.1 F 79 117/59 L 99 06/16/19 16:49 06/16/19 16:49 06/16/19 16:49 06/16/19 16:49 Discharge - Discharge Clinical Impression: Bilateral flank pain UTI (urinary tract infection) Qualifiers: Urinary tract infection type: site unspecified Hematuria presence: with hematuria Qualified Code(s): N39.0 - Urinary tract infection, site not specified Condition: Stable Disposition: HOME, SELF-CARE Instructions: Flank Pain ([facility]), Use of [id number]-[id number]-Bvvnytm Ibuprofen ([facility]), Nitrofurantoin ([facility]), Urinary Tract Infection ([facility]) Additional Instructions: *You have been evaluated for bilateral flank pain urinary frequency, UTI *Take medication as prescribed *Push fluids *Follow up with a primary care provider within 1 week for recheck *Return to ED for worsening condition, changes, needs, fever concerns *Return to ED if not better in 24 hours Prescriptions: Nitrofurantoin/Nitrofuran Mac [Macrobid 100 mg Capsule] 100 mg PO BID #20 capsule
[2019-06-16 17:36] LABS: APPEARANCE,URINE CLEAR; BILIRUBIN,URINE NEGATIVE (NEGATIVE); COLOR,URINE YELLOW; GLUCOSE, URINE >=500 mg/dL (NEGATIVE); KETONES,URINE NEGATIVE (NEGATIVE); PROTEIN,URINE NEGATIVE (NEGATIVE); URINE SPECIFIC GRAVITY 1.015
== END 2019-06-16 18:28 | disposition home or self-care (01) ==
LOC: ER 16:45
DX: N39.0 Urinary tract infection, site not specified (principal); R10.9 Unspecified abdominal pain; F17.200 Nicotine dependence, unspecified, uncomplicated; Z98.51 Tubal ligation status
CPT/HCPCS: 81001; 81025; 82962; 87086; 99283